=== PATIENT | female | born 1965 | race Caucasian/White ===

== ENCOUNTER 2017-08-06 08:11 | Emergency (ER) | payer OTHER, MEDICAID ==
[~2017-08-06] VITALS: Ht 152.4 cm; Wt 96.0 kg
[2017-08-06 08:18] VITALS: BP 135/78; PULSE 93; RESP 18; TEMP 98.8; O2SAT 98
[2017-08-06] MEDS ORDERED: FURO1TAB60 PO (08:40)
[2017-08-06] MEDS ORDERED: K-TA10TA PO (08:40)
[2017-08-06] MEDS ORDERED: EFFE150C PO (08:40)
[2017-08-06] MEDS ORDERED: ENAL5TAB5 PO (08:40)
[2017-08-06] MEDS ORDERED: ACETAMINOPHEN 500 MG CPLT PO ONE (08:45)
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
== END 2017-08-06 09:55 | disposition home or self-care (01) ==
LOC: PHED 08:11
DX: M25.552 Pain in left hip (principal); V43.52XA Car driver injured in collision with other type car in traffic accident, initial encounter
CPT/HCPCS: 72100; 73502; 99284